=== PATIENT | male | born 1975 | race African-American/Black ===

== ENCOUNTER 2017-06-01 18:16 | Inpatient (IN) | payer OTHER ==
[~2017-06-01] VITALS: Ht 182.9 cm; Wt 70.4 kg
--- NOTE | ~2017-06-01 | CO ---
Unit #: [id number] #: [id number] Patient: IGNACIO SOLIMAN [id number] [address] [place], [place] [address] [id number] MR#: [id number] NAME: IGNACIO SOLIMAN ROOM: 315 Age: 41 Sex: M Admission Date: 06/02/2017 : 1975 Attending Physician: Zofia Gutierrez M.D. Primary Care Physician: No Primary Care Physician Consultation Date: 06/03/2017 CONSULTATION REPORT REASON FOR CONSULT Abnormal CT chest. HISTORY OF PRESENT ILLNESS This is a 41-year-old -[place] gentleman with past medical history significant for end-stage renal disease on dialysis, hypertension, who presented to the emergency room with diffuse chest muscle tenderness and discomfort. Patient had some cough with streak of blood but denied any fever. He had some chills. Patient thought he had pneumonia so he was worried that he needed to be checked early. Patient was treated for pneumonia in April 2016. PAST MEDICAL HISTORY 1. Essential hypertension. 2. End-stage renal disease. 3. Previous pneumonia. ALLERGIES No known drug allergy. HOME MEDICATION 1. Clonidine. 2. Lisinopril. 3. Sensipar. 4. Renvela. 5. Norvasc. FAMILY HISTORY Hypertension. SOCIAL HISTORY Patient lives with his girlfriend. They have five kids. He does not smoke cigarettes but he uses marijuana. He drinks alcohol socially. REVIEW OF SYSTEMS A 12-point review of systems was obtained and was negative except for what was mentioned in the HPI. PHYSICAL EXAMINATION GENERAL: The patient is in no acute distress. HEENT: Normocephalic and atraumatic. PERRLA. EOMI. Unit #: [id number] #: [id number] Patient: IGNACIO SOLIMAN NECK: Supple. No JVD. No lymphadenopathy. CHEST: Clear to auscultation bilaterally. HEART: S1, S2. Systolic murmur. ABDOMEN: Soft, nontender. Bowel sound is positive. No hepatosplenomegaly. EXTREMITIES: No edema or cyanosis. Patient has a left-sided shunt on the left arm. SKIN: No rashes. GIS MANAGER: Awake, alert, oriented x3. No focal motor/sensory deficits. DIAGNOSTIC STUDIES LABORATORY: pO2 of 55 on a blood gas from 2016, creatinine 5.0, sodium 5.6. IMAGING: CT chest is reviewed and noted by me. ASSESSMENT 1. Mild hemoptysis. 2. End-stage renal disease. 3. Hypertension. 4. Noncompliance. PLAN 1. CT chest is reviewed and noted by me and its finding is concerning for chronic thromboembolic disease versus airtrapping from chronic obstructive pulmonary disease or asthma. However, patient denied any history of smoking and his symptoms do not suggest asthma at this point. Will start patient on bronchodilator and will continue with hemodialysis as scheduled. 2. Patient will need a V/Q scan better than CT angiogram to assist for chronic thromboembolic disease. 3. Hemodialysis per nephrology. 4. DVT prophylaxis. I would like to thank Dr. Gutierrez for allowing me to be part of this patient's care. Dictated by... Oliver Toth M.D. EA/janae TD: 06/03/2017 15:29 JOB #: [id number] Unit #: [id number] #: [id number] Patient: IGNACIO SOLIMAN CONSULTATION REPORT Page 1 of 1 X OLIVER PETERSEN MD X CONSULTATION REPORT
--- NOTE | ~2017-06-01 | HP ---
Unit #: [id number] #: [id number] Patient: IGNACIO SOLIMAN [id number] [facility]. [place], [place] [address] [id number] MR#: [id number] NAME: IGNACIO SOLIMAN ROOM: 315 Age: 41 Sex: M Admission Date: 06/02/2017 : 1975 Attending Physician: Nesha Stone M.D. Primary Care Physician: No Primary Care Physician HISTORY AND PHYSICAL CHIEF COMPLAINT Respiratory failure. HISTORY This pleasant 41-year-old male with hypertension and end stage renal failure on dialysis, is admitted for acute hypoxic respiratory failure. Patient states that two days ago he felt somewhat ill with myalgias predominantly in the arms. Noted a minor cough, occasionally productive of some blood tinged sputum and purulent looking material. [place] worse yesterday and presented to this emergency department last evening after dialysis. His chest x-ray is abnormal showing patchy diffuse alveolar disease with stable cardiomegaly, which could represent pneumonia versus congestive heart failure. He denies chest pain with the above. States, however, that his symptoms feel similar to the pneumonia that he was treated for while hospitalized last year. His O2 sats decreased to about 88% now on room air. In the ER vancomycin, tobramycin and Zosyn were ordered. The patient is afebrile with a normal white count, and I was told a normal lactic acid. Will check to see that a lactic acid level was drawn. His BNP is elevated but he is a dialysis patient. His troponin is borderline abnormal at 0.06. On examination he is also noted to have a very prominent mitral valve murmur. Patient was last admitted to this facility 04/2016 for pneumonia, I am unsure whether it was decided to be hospital versus community acquired. His blood cultures were negative, and he underwent bronchoscopy, which I believe was negative, although I do not have the formal report. His sputum on bronchoscopy revealed rare normal respiratory kaite. PAST MEDICAL HISTORY 1. History of fluid overload requiring admission. 2. Essential hypertension. 3. End stage renal failure on hemodialysis Thursday, Thursday and Thursday, followed by Dr. Alvarez. 4. Pneumonia requiring bronchoscopy 04/2016. 5. Echo 02/2009, ejection fraction 55% with moderate LVH, mild MR. 6. Nuclear Lexiscan stress test 2011 probably normal. There was mild fixed inferior wall perfusion abnormality, which possibly got better during the stress. Images thought to be probably related to tissue attenuation. No ischemia. Borderline LV function with ejection fraction of 49%. 7. Left arm fistula for dialysis. ALLERGIES Unit #: [id number] #: [id number] Patient: IGNACIO SOLIMAN Allergies to cashews. HOME MEDICATIONS Renvela 3 tablets p.o. t.i.d. with meals; lisinopril 40 mg daily; Sensipar 1 tablet daily; clonidine 0.2 mg b.i.d. Patient states that he no longer takes Lopressor or Norvasc. FAMILY HISTORY Hypertension. SOCIAL HISTORY The patient lives with his girlfriend, and five children. He does not smoke tobacco. Uses occasional THC but denies other illicit drugs. Drinks occasional alcohol. REVIEW OF SYSTEMS Notable for minor cough, myalgias particularly in the arms, chills, and sweats, hypertension, renal failure, previous history of pneumonia, left arm shunt, history of fluid overload. All other systems were reviewed and otherwise negative. PHYSICAL EXAMINATION GENERAL: Pleasant 41-year-old male currently in no acute distress. VITAL SIGNS: Temperature 98.3, pulse 93, respirations 16, blood pressure 171/102. O2 saturation was initially 92% on room air but did decrease to about 88%. HEENT: Eyes - PERRLA, extraocular muscles are intact. Pharynx is benign. NECK: Supple without adenopathy or thyromegaly. Elevated JVD noted. CHEST: Fairly clear. CARDIAC: Normal S1 and S2 with a loud systolic murmur. Breaths heard at the apex. Apical impulse looks to be somewhat displaced as well. ABDOMEN: Bowel sounds are present, no hepatosplenomegaly, tenderness or masses. EXTREMITIES: Without edema. Pedal pulses are present. Left arm with dialysis fistula with good thrill and good bruit. NEUROLOGIC: Patient is awake, alert and oriented his cranial nerves are intact. He has equal strength throughout. DIAGNOSTIC STUDIES ADMISSION LABS: Hematocrit is 35.9, normal white count and platelet count. SMA 12 - BUN 32, creatinine 8.8, potassium is 3.4, chloride is 96, alk phos is 98. BNP 3,331. I do not see a definite lactic acid and will request a lactic acid. Cardiac markers 0.06 on two sets. Cardiac markers have been borderline indeterminate in the past as well. IMAGING STUDIES: Chest x-ray - patch diffuse alveolar disease with stable cardiomegaly. Increased central prominence, which could be infectious versus congestive heart failure. CARDIOLOGY STUDIES: EKG - normal sinus rhythm, rate 88. There are T wave inversions noted in 1. I believe the EKG is similar to that of a previous EKG, although in T6 there seems to be more of a T wave inversion. ASSESSMENT 1. Cough, acute hypoxic respiratory failure with abnormal chest x-ray. Rule out health care associated pneumonia versus fluid overload with congestive heart failure. 2. End stage renal failure just dialyzed. Unit #: [id number] #: [id number] Patient: IGNACIO SOLIMAN 3. Essential hypertension 4. Loud mitral murmur. PLANS 1. Cefepime, vancomycin, and 1 dose of tobra. 2. Repeat chest x-ray in the morning. 3. EKG, cardiac enzymes and echo in the morning. 4. Blood cultures are pending, will check lactic acid level, along with procalcitonin. 5. SCDs for DVT prophylaxis. 6. Nephrology consultation in the morning. Dictated by Nesha Stone M.D. AML/ts TD: 06/02/2017 06:12 JOB #: [id number] CC: Kaylyn Snyder M.D. HISTORY AND PHYSICAL Page 1 of 1 X Nesha Stone MD HISTORY AND PHYSICAL
--- NOTE | ~2017-06-01 | EKG ---
PATIENT: IGNACIO SOLIMAN UNIT #: [id number] Ventricular Rate: 77 BPM Atrial Rate: 77 BPM P-R Interval: 164 ms QRS Duration: 90 ms Q-T Interval: 406 ms QTC Calculation(Bezet): 459 ms P [place]: 11 degrees Calculated R [place]: 90 degrees Calculated T [place]: 133 degrees Diagnosis Line: Normal sinus rhythm Diagnosis Line: Possible Left atrial enlargement Diagnosis Line: Left ventricular hypertrophy Diagnosis Line: Possible Lateral infarct , age undetermined Diagnosis Line: Abnormal ECG Diagnosis Line: When compared with ECG of 01-JUN-2017 18:28, Diagnosis Line: Incomplete right bundle branch block is no longer Diagnosis Line: Present Diagnosis Line: Septal infarct is now Present Diagnosis Line: Borderline criteria for Lateral infarct are now Diagnosis Line: Present Diagnosis Line: Confirmed by MARK HANSON MD ([id number]) on 06/05/2017 Diagnosis Line: 5:18:21 PM INTERPRETING MD: MARGIE MENDEZ
--- NOTE | ~2017-06-01 | NM69 ---
[facility] A Service of [facility] RADIOLOGY TEXT RESULTS PATIENT: IGNACIO SOLIMAN LOCATION: [facility] 315- : [birth year] UNIT #: [id number] AGE: [address]: Zofia Gutierrez MD SEX: M ORDER DR: [id number] [facility] [address]. [place], [place] [address] [id number] I MR#: [id number] Acc #: [id number] NAME: IGNACIO SOLIMAN : 1975 SEX: M STUDY DATE/TIME: 06/03/2017 14:26 UNIT: A U ROOM: [facility] STUDY DESCRIPTION: NM Pulm Vent and Perf Attending Physician: Zofia Gutierrez M.D. Ordering Physician: Shantelle Toth M.D. Primary Care Physician: Primary Care Physician No MEDICAL IMAGING REPORT This report is preliminary unless electronic signature is present EXAM V/Q scan 06/03 INDICATIONS Cough with hemoptysis and chest pain and hypoxemia that started yesterday. FINDINGS Ventilation images were obtained after the administration of 36.0 mCi of technetium 99m - DTPA aerosol. Corresponding perfusion images were obtained after the IV administration of 5.3 mCi of technetium 99m - MAA. Comparison made with a chest x-ray March 03, 2017. Ventilation and perfusion tracer deposition is somewhat heterogeneous bilaterally. Subsegmental perfusion defects noted right middle lobe. No large segmental defect is seen. Study is low probability for pulmonary embolism. IMPRESSION Low probability for pulmonary embolism. Dictated by... Nadir Shi Jr., M.D. THIS IS AN ELECTRONICALLY VERIFIED REPORT Nadir Shi Jr., M.D. at 06/04/2017 4:32 PM RLK/maurilio TD: 06/03/2017 17:53 JOB #: [id number] MEDICAL IMAGING REPORT Page 1 of 1 COPY
--- NOTE | ~2017-06-01 | CO ---
Unit #: [id number] #: [id number] Patient: IGNACIO HOLM [id number] [facility]. [place], [place] [address] [id number] I MR#: [id number] NAME: IGNACIO HOLM ROOM: 315 Age: 41 Sex: M Admission Date: 06/02/2017 : 1975 Attending Physician: Zofia Gutierrez M.D. Primary Care Physician: Primary Care Physician No Consultation Date: 06/02/2017 CONSULTATION REPORT REASON FOR CONSULTATION Renal failure. Thank you very much for asking me to see this patient in consultation. HISTORY OF PRESENT ILLNESS Mr. Damian Holm is a 41-year-old male with history of end-stage renal disease, on hemodialysis every Thursday, Thursday, and Thursday with his last dialysis yesterday, who presented to the hospital here with cough and hemoptysis. He states just began hurting in his chest and his body and his eyes hurting although. The note from the admitting doctor, states he was short of breath, he states he was not. He denies any fevers or chills. He denies any increased swelling. Reviewing the records from the dialysis unit, his dry weight is set at 70 kg, he got to 70.8 yesterday, although no cramping. PAST MEDICAL HISTORY History of end-stage renal disease, as mentioned above with dialysis every Thursday, Thursday, and Thursday; history of hypertension; history of left arm fistula; history of right upper lobe pneumonia in 04/2016; history of anemia; history of marijuana usage; history of cocaine usage. ALLERGIES Include cashews. FAMILY HISTORY Positive for hypertension. Negative for kidney disease. SOCIAL HISTORY He lives with a girlfriend who has multiple kids. He again does intermittent marijuana and cocaine, but he denies any type of IV usage. He denies any cigarette smoking. No alcohol. MEDICATIONS At home include Renvela 800 mg three with each meal, lisinopril 40 mg a day, Sensipar daily, and clonidine 0.2 mg b.i.d. REVIEW OF SYSTEMS As mentioned in the HPI, otherwise negative. PHYSICAL EXAMINATION GENERAL: He is alert and oriented. VITAL SIGNS: T-max 98.7, pulse 81 to 93, blood pressure 136 to171 over 80 to 114. Unit #: [id number] #: [id number] Patient: IGNACIO HOLM HEENT: He is normocephalic and atraumatic. Pupils are equal, round, and reactive to light. Extraocular muscles are intact. Hearing appears to be normal. Mouth is clear. No erythema. No exudate. NECK: Supple. No JVD. CARDIAC: He appears to have a regular rate and rhythm with a 2/6 systolic ejection murmur. LUNGS: Occasional rhonchi bilaterally. ABDOMEN: Bowel sounds positive, nontender, soft. No masses felt. No hepatomegaly noted. EXTREMITIES: He has no lower extremity swelling. His pulses are intact in lower extremities. He has a large fistula in his left upper arm with good thrill. NEURO: Appears to be intact with motor and sensory grossly. : Deferred. DIAGNOSTIC STUDIES LABORATORY RESULTS: Had a glucose of 115, BUN of 40, creatinine is 10.5, potassium 4.1, bicarb is 28, calcium is 9.0, albumin is 3.6, alkaline phosphatase is 98. Liver function tests are normal. CPK is 262 with a troponin 0.17. BNP is 3731. Lactic acid was 1.02. His INR is 1.2. White count 4700, hemoglobin 11.7 with platelets 167,000. IMAGING STUDIES: His chest x-ray by report apparently showed some bilateral infiltrates, questionable pneumonia versus fluid, but I do not have the actual report. ASSESSMENT AND PLAN 1. End-stage renal disease, again the patient with dialysis yesterday. His electrolytes are stable. I do not see a lot of fluid on board, but his BNP certainly significantly elevated and with his questionable shortness of breath, etc. I am going to go ahead and try to dialyze him today and tomorrow and try to challenge his weight slowly and see if that helps his respiratory status as well and his hypoxemia. We will follow electrolytes. 2. Again, apparently hypoxemia with questionable pneumonia, although no elevation of his white count. I agree with antibiotics as well as check an echo due to his heart murmur and again dialyzed today. 3. Hypertension. Continue current antihypertensive medicines. We will follow trends. 4. History of marijuana and cocaine usage and he states recently, but again denies any IV drug use. Dictated by... Marisol Aguilar/xiomy TD: 06/02/2017 23:30 JOB #: [id number] Unit #: [id number] #: [id number] Patient: IGNACIO HOLM CONSULTATION REPORT Page 1 of 1 X Daniel Gonzalez MD CONSULTATION REPORT
--- NOTE | ~2017-06-01 | CR63 ---
[facility] A Service of [facility] & [facility] RADIOLOGY TEXT RESULTS PATIENT: IGNACIO SOLIMAN LOCATION: [facility] 315- : [birth year] UNIT #: [id number] AGE: [address]: Zofia Gutierrez MD SEX: M ORDER DR: [id number] [facility] [address]. [place], [place] [address] [id number] I MR#: [id number] Acc #: [id number] NAME: IGNACIO SOLIMAN : 1975 SEX: M STUDY DATE/TIME: 06/03/2017 13:56 UNIT: [address] ROOM: [facility] STUDY DESCRIPTION: CR Chest 2 View Attending Physician: Zofia Gutierrez M.D. Ordering Physician: Zofia Gutierrez M.D. Primary Care Physician: No Primary Care Physician MEDICAL IMAGING REPORT This report is preliminary unless electronic signature is present EXAM Chest, 2 views, 06/03/2017, 1356 hours. CLINICAL HISTORY 41-year-old man complaining of a 2-week history of shortness of air and cough productive of bloody sputum. History of renal failure. COMPARISON CT chest 06/03/2017 and chest x-ray 06/02/2017. FINDINGS Upright PA and lateral views of the chest demonstrate stable cardiomegaly and a mildly tortuous aorta. Lungs are hyperinflated with ground-glass perihilar opacities unchanged. There is no effusion. Nodule seen on CT earlier today is not detectable in the right lung on plain film. IMPRESSION Cardiomegaly with pulmonary venous distension. Perihilar ground-glass opacities are unchanged. Lungs are hyperinflated. The nodule demonstrated on CT earlier today in the right lung is not detectable on plain film. Dictated by... Lizbeth Henao M.D. THIS IS AN ELECTRONICALLY VERIFIED REPORT Lizbeth Henao M.D. at 06/04/2017 9:28 AM HINA/ryan TD: 06/03/2017 15:26 JOB #: [id number] [facility] A Service of [facility] & [facility] RADIOLOGY TEXT RESULTS PATIENT: IGNACIO SOLIMAN LOCATION: [facility] 315-01 : [birth year] UNIT #: [id number] AGE: [address]: Zofia Gutierrez MD SEX: M ORDER DR: MEDICAL IMAGING REPORT Page 1 of 1 COPY
--- NOTE | ~2017-06-01 | DS ---
Unit #: [id number] #: [id number] Patient: IGNACIO SOLIMAN [id number] [place], [place] [address] [id number] I MR#: [id number] NAME: IGNACIO SOLIMAN ROOM: 315 Age: 41 Sex: M Admission Date: 06/02/2017 : 1975 Discharge Date: 06/05/2017 Attending Physician: Zofia Gutierrez M.D. Primary Care Physician: No Primary Care Physician DISCHARGE SUMMARY REASON FOR ADMISSION Respiratory failure. HISTORY OF PRESENT ILLNESS/HOSPITAL COURSE The patient is a 41-year-old male with an underlying history of hypertension, end-stage renal failure on dialysis, was admitted secondary to acute hypoxic respiratory failure. Please see H and P for complete details. Essentially patient was fluid overloaded secondary to missing several dialysis sessions as initial BNP was elevated at 4342. 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 He underwent emergent hemodialysis on several occasions through hospital course and he was placed on telemetry floor. Secondary to chest x-ray findings consistent with pneumonia versus fluid overload, patient ultimately underwent CT chest noncontrast on 06/03/2017 and raised the possibility of possible thromboembolism and therefore this prompted a consultation to Dr. Toth of pulmonary services who saw and evaluated patient. Patient then underwent a V/Q scan which was low probability. From Dr. Toth's standpoint no further antibiotics were recommended and/or needed and probability of thromboembolism was felt to be very low. Also noted was an irregular solitary pulmonary nodule in the central right upper lung measuring approximately [address] noncontrast in three to six months was recommended. Subsequently his antibiotics were discontinued. Patient did undergo a 2D echocardiogram secondary to elevated BNP as well as persistent dyspnea. It did reveal severe concentric left ventricular hypertrophy. There was trivial pericardial effusion noted. There was moderate tricuspid regurgitation. Moderately dilated right ventricle was also noted. This subsequently prompted a consultation to Dr. Kim who felt as though findings were more consistent with the patient's longstanding history of noncompliance with routine medications. Appropriate adjustments were made in discharge medications. Please see below for discharge medications and it was noted patient does have a longstanding history of polysubstance abuse; once again he was counseled extensively on the risk of continuing. FINAL DISCHARGE DIAGNOSES Unit #: [id number] #: [id number] Patient: IGNACIO SOLIMAN 1. Acute hypoxic respiratory failure. 2. Volume overload. 3. End-stage renal disease with noncompliance with hemodialysis. 4. Hypertension, noncompliant with medications. 5. Polysubstance abuse. 6. Left ventricular hypertrophy. 7. Mild to moderate valvular heart disease. DISCHARGE MEDICATIONS 1. Clonidine 0.3 mg p.o. q.8 h. 2. Hydralazine 50 mg p.o. q.8 h. 3. Zestril 40 mg p.o. daily. 4. Sensipar 30 mg p.o. daily. 5. Aspirin 81 mg p.o. daily. 6. Renvela 3200 mg p.o. t.i.d. with meals. DISCHARGE CONDITION Stable. DISCHARGE DISPOSITION Home. FOLLOWUP Outpatient hemodialysis was previously ordered and/or scheduled. PROGNOSIS Long-term prognosis of this patient is guarded secondary to longstanding history of noncompliance. Dictated by... Marisol Barboza/janae TD: 06/07/2017 16:03 JOB #: [id number] DISCHARGE SUMMARY Page 1 of 1 X Zofia Gutierrez MD X DISCHARGE SUMMARY
--- NOTE | ~2017-06-01 | CO ---
Unit #: [id number] #: [id number] Patient: IGNACIO SOLIMAN [id number] [facility] [address] [facility]. [place], [place] [address] [id number] I MR#: [id number] NAME: IGNACIO SOLIMAN ROOM: 315 Age: 41 Sex: M Admission Date: 06/02/2017 : 1975 Attending Physician: Zofia Gutierrez M.D. Primary Care Physician: No Primary Care Physician Consultation Date: 06/04/2017 CONSULTATION REPORT REASON FOR ADMISSION Abnormal two-dimensional echocardiogram. HISTORY OF PRESENT ILLNESS This is a 41-year-old male previously known to Dr. Kahn through prior hospitalization in 2010 at [facility]. At that time the patient was treated for endstage renal disease, congestive heart failure and indeterminate troponin. He had probable pneumonia with hemoptysis. A two-dimensional echocardiogram was obtained 02/27/2009 and revealed an ejection fraction of 55% with moderate left ventricular hypertrophy. Left atrium was moderately dilated and there was mild mitral regurgitation. The patient had a Lexiscan Cardiolite stress test in 04/2011 which revealed no ischemia, but a fixed defect in the inferior wall, likely from soft tissue attenuation artifact. Ejection fraction was 49%. He is known to have longstanding hypertension and endstage renal disease on hemodialysis. He has a history of cocaine and marijuana use. He has not followed with a peer health promoter as an outpatient. He denies any recent testing. He presented to the emergency department with complaints of not feeling well. He states that he has been short of breath and has had a cough which has been mildly productive. He has (1) of a small amount of blood, but that has resolved. There are no reports of fever or chills. He denies dizziness or syncope. There are no reports of chest pain, palpitations, PND or orthopnea. He denies lower extremity edema. He has had some recent diarrhea, which he attributes to antibiotic use. There are no reports of melena. The patient states that he has been compliant with his medications and his dialysis. In the emergency department his temperature was 98.3, pulse 93, blood pressure 171/102 and O2 saturations 92% on room air. Initial chest imaging was concerning for pneumonia. He was given vancomycin, tobramycin and Zosyn. He was admitted and nephrology was consulted and he needed dialysis. Two-dimensional echocardiogram was obtained and revealed an ejection fraction of 50%-55% with severe LVH and mild to moderate tricuspid and pulmonic regurgitation. RVSP was elevated at 49 mmHg. The patient underwent a VQ scan which was low probability for PE. Cardiology was consulted for abnormal two-dimensional echocardiogram. PAST MEDICAL HISTORY 1. Previous admission to [facility] in 2010 for congestive heart failure, endstage renal and indeterminate troponin. Probable pneumonia with hemoptysis. 2. Two-dimensional echocardiogram 02/27/2009 revealed an ejection Unit #: [id number] #: [id number] Patient: IGNACIO SOLIMAN fraction of 55%. Left atrium mildly dilated. Moderate LVH. Mild mitral regurgitation. 3. Lexiscan Cardiolite stress test 04/17/2011 revealed a mild fixed inferior wall defect, likely from soft tissue attenuation artifact. No ischemia. Ejection fraction 49%. 4. Hypertension. 5. Endstage renal disease on hemodialysis. 6. Cocaine abuse. 7. Marijuana abuse. 8. Nonsmoker. PAST SURGICAL HISTORY 1. Left arm fistula. 2. Previous Shiley. SOCIAL HISTORY The patient is a nonsmoker, but states he does use marijuana and has a history of cocaine in the past. There are no reports of IV drug use. FAMILY HISTORY Noncontributory for heart disease. ALLERGIES No known drug allergies. Adverse reaction to metoprolol. HOME MEDICATIONS 1. Tylenol 650 mg p.o. q.6 h. p.r.n. pain. 2. Norvasc 10 mg daily. 3. Metoprolol 100 mg p.o. b.i.d. 4. Omnicef 300 mg p.o. b.i.d. 5. Clonidine 0.2 mg p.o. t.i.d. 6. Lisinopril 40 mg p.o. daily. 7. Sensipar 60 mg p.o. daily. 8. Renvela 3200 mg p.o. t.i.d. with meals. The patient's medication reconciliation needs to be reviewed. He states that he cannot take metoprolol due to tightness in the throat. He has only been taking his clonidine b.i.d. Need to verify medications and dosing. REVIEW OF SYSTEMS Ten point review of systems negative except for details noted above in history of present illness. PHYSICAL EXAMINATION GENERAL: This is a 41-year-old male in no acute distress. VITALS: Temperature 98.4, pulse 82, blood pressure 163/93 when I saw the patient. SKIN: Warm and dry. NECK: Supple. No jugular venous distension. No hepatojugular reflux. Normal carotid upstrokes. No carotid bruits auscultated. LUNGS: Bilateral breath sounds have good air entry to all lung seay. Respirations even and unlabored. No rales, rhonchi or wheezes. HEART: S1 and S2. Regular rate and rhythm. No murmurs, rubs or gallops. ABDOMEN: Soft, nontender and nondistended. Positive bowel sounds auscultated all four quadrants. No ascites noted. EXTREMITIES: Bilateral extremities have no pretibial pitting edema. Unit #: [id number] #: [id number] Patient: SOLIMAN,IGNACIO Dorsalis pedis and posterior tibial pulses are 2+. Capillary refill 3 seconds. DIAGNOSTIC STUDIES IMAGING: Chest x-ray reveals cardiomegaly with pulmonary venous distension. Nodule demonstrated on CT earlier today in the right lung is not detectable on plain film. CT of the chest without contrast reveals moderate cardiomegaly with enlarged central pulmonary arteries. Dense mitral valve annulus calcification, faint aortic valvular calcification and atheromatous coronary artery calcification. No pericardial effusion. Diffuse mosaic pattern of lung attenuation, possibly from obstructive airways disease. This can also be change associated with chronic pulmonary thromboembolic disease with pulmonary artery hypertension. Irregular solitary pulmonary nodule in the central right upper lobe measuring 9 mm, new since prior exam. Followup chest CT in 6 months recommended. VQ scan reveals low probability for PE. LABORATORY: White blood cell count 5.7, hemoglobin 12.3, hematocrit 38.9, platelets 217. Sodium 137, potassium 4.7, chloride 93, CO2 27, BUN 51, creatinine 12.8, BUN 71, AST 18, ALT 13, alkaline phosphatase 98, troponin 0.06 and 0.17. BNP 4,342. Procalcitonin normal. INR 1.2. CARDIOVASCULAR: Electrocardiogram reveals sinus rhythm with a ventricular rate of 88 beats per minute. Nonspecific ST-T wave changes. Poor R wave progression. T wave inversion in the lateral leads. QTC 469 msec. ASSESSMENT 1. Questionable pneumonia. 2. VQ scan is low probability for PE. 3. Endstage renal disease on hemodialysis. 4. Uncontrolled hypertension. 5. Severe LVH with an ejection fraction of 50%-55%. Mild to moderate tricuspid and pulmonic regurgitation. Moderate pulmonary hypertension on two-dimensional echocardiogram 06/03/2017. 6. History of cocaine abuse. 7. History of marijuana use. PLAN 1. The patient presented to the hospital with complaints of body aches and a cough. He was admitted and pulmonology was consulted. 2. Cardiology was consulted due to abnormal two-dimensional echocardiogram. The patient's echocardiogram shows severe LVH which is secondary to uncontrolled hypertension. 3. His clonidine and hydralazine have been increased by nephrology. 4. TSH and fasting lipid profile will be obtained. 5. There are no reports of chest pain or evidence of congestive heart failure on exam. 6. The patient has been advised to be compliant with medications and low-sodium diet and has been instructed to refrain from drug use. Dictated by... Mattie Georges APRN for Elizabeth Kim M.D. Unit #: [id number] #: [id number] Patient: IGNACIO SOLIMAN PRISCILA/gz TD: 06/05/2017 08:58 JOB #: [id number] CONSULTATION REPORT Page 1 of 1 X X CONSULTATION REPORT
--- NOTE | ~2017-06-01 | EKG ---
PATIENT: IGNACIO SOLIMAN UNIT #: [id number] Ventricular Rate: 88 BPM Atrial Rate: 88 BPM P-R Interval: 160 ms QRS Duration: 98 ms Q-T Interval: 388 ms QTC Calculation(Bezet): 469 ms P Shickley: 77 degrees Calculated R Shickley: 113 degrees Calculated T Shickley: 160 degrees Diagnosis Line: Normal sinus rhythm Diagnosis Line: Possible Left atrial enlargement Diagnosis Line: Left ventricular hypertrophy Diagnosis Line: RSR' or QR pattern in V1 suggests right Diagnosis Line: ventricular conduction delay Diagnosis Line: T wave abnormality, consider lateral ischemia Diagnosis Line: Prolonged QT Diagnosis Line: Abnormal ECG Diagnosis Line: When compared with ECG of 14-APR-2016 10:53, Diagnosis Line: QRS axis Shifted right Diagnosis Line: Nonspecific T wave abnormality now evident in Diagnosis Line: Inferior leads Diagnosis Line: T wave inversion more evident in Lateral leads Diagnosis Line: Confirmed by SHIRIN CUEVAS MD ([id number]) on Diagnosis Line: 06/01/2017 10:50:17 PM INTERPRETING MD: MARGIE
--- NOTE | ~2017-06-01 | CR63 ---
[facility] A Service of [facility] RADIOLOGY TEXT RESULTS PATIENT: IGNACIO SOLIMAN LOCATION: A 315- : [birth year] UNIT #: [id number] AGE: [address]: Zofia Gutierrez MD SEX: M ORDER DR: [id number] [facility] [address] [facility] [address]. [place], [place] [address] [id number] I MR#: [id number] Acc #: [id number] NAME: IGNACIO SOLIMAN : 1975 SEX: M STUDY DATE/TIME: 06/02/2017 8:09 [facility] STUDY DESCRIPTION: CR Chest 2 View Attending Physician: Zofia Gutierrez M.D. Ordering Physician: Nesha Stone M.D. Primary Care Physician: No Primary Care Physician MEDICAL IMAGING REPORT This report is preliminary unless electronic signature is present EXAM PA and lateral chest, 06/02. INDICATIONS Shortness of air, pneumonia, and bloody cough for 1 day. COMPARISON 06/01. FINDINGS PA and lateral views of the chest were obtained. Heart size is mildly prominent. There is vascular congestion with minimal perihilar and interstitial prominence. This was slightly worse on yesterday's study. IMPRESSION Findings today in comparison with yesterday's study with mild cardiomegaly and vascular prominence and perhaps some minimal perihilar infiltrates or edema. Dictated by... Negrito Mercado M.D. THIS IS AN ELECTRONICALLY VERIFIED REPORT Negrito Mercado M.D. at 06/02/2017 3:17 PM MARLEY/indy TD: 06/02/2017 13:46 JOB #: [id number] MEDICAL IMAGING REPORT Page 1 of 1 COPY
--- NOTE | ~2017-06-01 | CT57 ---
[facility] A Service of [facility] RADIOLOGY TEXT RESULTS PATIENT: IGNACIO SOLIMAN LOCATION: [facility] 315- : [birth year] UNIT #: [id number] AGE: [address]: Zofia Gutierrez MD SEX: M ORDER DR: [id number] [place] [id number] [facility]. [place], [place] [address] [id number] I MR#: [id number] Acc #: [id number] NAME: IGNACIO SOLIMAN : 1975 SEX: M STUDY DATE/TIME: 06/03/2017 1:48 UNIT: C3A PCU ROOM: [facility] STUDY DESCRIPTION: CT Chest Wo Cont Attending Physician: Zofia Gutierrez M.D. Ordering Physician: Zofia Gutierrez M.D. Primary Care Physician: Primary Care Physician No MEDICAL IMAGING REPORT This report is preliminary unless electronic signature is present EXAM CT chest, noncontrast, 06/03/2017 HISTORY 41-year-old male with end-stage renal disease, dialysis. Several day history of shortness of air and cough. Possible pneumonia. TECHNIQUE CT examination of the chest was performed without IV contrast. This CT examination was performed with one or more of the following radiation dose reduction techniques: automatic exposure control, adjustment of mA and/or kV according to patient size, and iterative reconstruction. FINDINGS The heart is moderately enlarged, there is dense mitral valvular calcification, faint aortic valvular calcification and atheromatous coronary artery calcification. No pericardial effusion. Central pulmonary arteries are mildly enlarged. Lung images show diffuse mosaic attenuation pattern, a finding that has been present on previous studies in 2016 and 2011. This is nonspecific, but the primary differential includes obstructive airways disease as well as changes associated with chronic PE with pulmonary artery hypertension. There is a 9 mm slightly irregular pulmonary nodule in the central right upper lobe (image 23) that was not present on prior studies. No additional lung lesion is seen. Followup chest CT in 6 months is recommended to exclude malignancy. No mass or adenopathy is seen within the mediastinum. Limited upper abdominal images show marked bilateral renal atrophy. IMPRESSION [facility] A Service of [facility] RADIOLOGY TEXT RESULTS PATIENT: IGNACIO SOLIMAN LOCATION: C3A 315-01 : [birth year] UNIT #: [id number] AGE: [address]: Zofia Gutierrez MD SEX: M ORDER DR: 1. Moderate cardiomegaly with enlarged central pulmonary arteries. Dense mitral valve annulus calcification, faint aortic valvular calcification and atheromatous coronary artery calcification. No pericardial effusion. 2. Diffuse mosaic pattern of lung attenuation, also present on 2 older studies. This can be seen with obstructive airways disease, but this can also be seen with changes associated with chronic pulmonary thromboembolic disease with pulmonary artery hypertension. 3. Irregular solitary pulmonary nodule in the central right upper lobe measuring 9 mm, new since prior exams. No other lung lesion is seen. Followup chest CT in 6 months is recommended. Dictated by... Jason Ayala M.D. THIS IS AN ELECTRONICALLY VERIFIED REPORT Jason Ayala M.D. at 06/03/2017 9:46 PM NATHAN/héctor TD: 06/03/2017 10:30 JOB #: [id number] MEDICAL IMAGING REPORT Page 1 of 1 COPY
--- NOTE | ~2017-06-01 | CR72 ---
[facility] A Service of [facility] RADIOLOGY TEXT RESULTS PATIENT: IGNACIO SOLIMAN LOCATION: A 315- : [birth year] UNIT #: [id number] AGE: [address]: Zofia Gutierrez MD SEX: M ORDER DR: [id number] [facility] [address] [facility]. [place], [place] [address] [id number] I MR#: [id number] Acc #: [id number] NAME: IGNACIO SOLIMAN : 1975 SEX: M STUDY DATE/TIME: 06/01/2017 21:27 [facility]: [facility] STUDY DESCRIPTION: CR Chest Single View Portable Attending Physician: Zofia Gutierrez M.D. Ordering Physician: Luciana Mccormick M.D. Primary Care Physician: No Primary Care Physician MEDICAL IMAGING REPORT This report is preliminary unless electronic signature is present EXAM Chest x-ray single-view portable HISTORY Short of air. Patient thinks he has pneumonia. He has a prior history of pneumonia. Symptoms started today. History of some of essential hypertension. COMMENT Single frontal portable view of the chest timed 212606/01/2017 is reviewed. There is a previous from 04/14/2016. Patient has moderate cardiac silhouette enlargement and there are bilateral infiltrates and there is abnormal increase in central markings. This could be due to vascular congestion or thickening of the peribronchovascular soft tissues. Please correlate for clinical evidence of aspiration or pneumonia versus concern for pulmonary edema in the setting of congestive failure. Findings are more concerning for aspiration or pneumonia since the heart size is not changed and there is no pleural effusion. On review of a chest x-ray from 2010, cardiac silhouette size is increased from that time. It is certainly possible that there is a combination of both infection and mild congestive failure present in this patient. IMPRESSION Abnormal chest x-ray. There is patchy alveolar disease bilaterally fairly diffusely. Again, there is cardiac silhouette enlargement which is not changed from 04/14/2016, but there is some increase in the central markings which could be due to some increase in central vascularity and/or some thickening of the peribronchovascular soft tissues due to infection. The findings are nonspecific and differential considerations include aspiration or pneumonia as well as congestive failure with patchy pulmonary edema. Of note, there is no evidence for pleural effusion. [facility] A Service of [facility] RADIOLOGY TEXT RESULTS PATIENT: IGNACIO SOLIMAN LOCATION: [facility] 315-01 : [birth year] UNIT #: [id number] AGE: [address]: Zofia Gutierrez MD SEX: M ORDER DR: Clinical correlation and followup is recommended. Dictated by... Bella Merchant M.D. THIS IS AN ELECTRONICALLY VERIFIED REPORT Bella Merchant M.D. at 06/02/2017 11:22 AM BETO/keegan TD: 06/02/2017 10:20 JOB #: [id number] MEDICAL IMAGING REPORT Page 1 of 1 COPY
[~2017-06-01 18:16] MED LIST: ACETAMINOPHEN PO; AMLODIPINE BESYL5 MG PO; CALCIUM ACETAT667 M1 PO; CIPRO PO; CLONIDINE HCL0.1 MG PO; CLONIDINE PO; FOLIC ACID PO; HYDRALAZINE HCL50 MG PO; KEFLEX PO; LEVAQUIN PO; LISINOPRIL PO; LOPRESSOR PO; LOPRESSOR100 MG PO; NEPHROCAPS CAPSU1 MG PO; NORVASC10 MG PO; OMNICEF300 MG PO; PHOSLO667 M1 PO; PHOSLO667 MG PO; PREDNISONE PO; PRINIVIL40 MG PO; RENVELA800 MG PO; SENSIPAR60 MG PO; VICODIN 5/500 T1 TAB PO; VICODIN PO; ZANTAC PO
[2017-06-01 18:57] LABS: BASOPHIL# 0.1 X10e3 (0-0.3); BASOPHIL% 1.1 % (0-2.5); EOSINOPHIL# 0.1 X10e3 (0-0.7); HEMATOCRIT 35.9 % (38.0-50.0); HEMOGLOBIN 11.6 gm/dL (13.0-16.0); LYMPHOCYTE# 0.4 X10e3 (1.0-3.5); LYMPHOCYTE% 7.6 % (17.0-45.0); MEAN CELL VOLUME 85.5 FL (83-96); MEAN CORPUSCULAR HEMOGLOBIN 27.7 PG (28-34); MEAN CORPUSCULAR HGB CONC 32.3 g/dL (30-36); MEAN PLATELET VOLUME 7.9 FL (6.5-11.5); MONOCYTE# 0.5 X10e3 (0-1.0); MONOCYTE% 9.6 % (3.0-12.0); NEUTROPHIL# 4.3 X10e3 (1.5-7.1); NEUTROPHIL% 79.7 % (40-75); PLATELET COUNT 184 X10e3 (140-420); RED CELL DISTRIBUTION WIDTH 19.5 % (11.0-15.5); WHITE BLOOD COUNT 5.4 X10e3 (4.0-10.5)
[2017-06-01 19:00] LABS: DIFF IND NO
[2017-06-01 19:33] LABS: ALBUMIN SERUM 3.6 g/dL (3.5-5.0); BILIRUBIN, DIRECT 0.2 mg/dL (0.0-0.2); BILIRUBIN,INDIRECT 0.7 mg/dL (0.0-0.9); BILIRUBIN,TOTAL 0.9 mg/dL (0.2-2.0); BUN/CREATININE RATIO 3.63; CALCIUM SERUM 8.8 mg/dL (8.4-10.2); CREATININE SERUM 8.8 mg/dL (0.6-1.4); GLOM FILT RATE Estimated 7.8 mL/min (>60); POTASSIUM 3.4 mmol/L (3.5-5.1); PROTEIN TOTAL SERUM 7.3 g/dL (6.0-8.3)
[2017-06-01 20:02] LABS: POC - CKMB 2.9 ng/mL (0.0-7.9); POC - TROPONIN 0.06 ng/mL (<=0.05)
[2017-06-01 22:55] LABS: POC - CKMB 2.5 ng/mL (0.0-7.9); POC - TROPONIN 0.06 ng/mL (<=0.05)
[2017-06-02 05:19] LABS: BASOPHIL# 0.1 X10e3 (0-0.3); BASOPHIL% 1.1 % (0-2.5); EOSINOPHIL# 0.1 X10e3 (0-0.7); HEMATOCRIT 35.6 % (38.0-50.0); HEMOGLOBIN 11.7 gm/dL (13.0-16.0); LYMPHOCYTE# 0.5 X10e3 (1.0-3.5); LYMPHOCYTE% 9.9 % (17.0-45.0); MEAN CELL VOLUME 85.6 FL (83-96); MEAN CORPUSCULAR HEMOGLOBIN 28.1 PG (28-34); MEAN CORPUSCULAR HGB CONC 32.8 g/dL (30-36); MEAN PLATELET VOLUME 7.8 FL (6.5-11.5); MONOCYTE# 0.4 X10e3 (0-1.0); MONOCYTE% 8.2 % (3.0-12.0); NEUTROPHIL# 3.6 X10e3 (1.5-7.1); NEUTROPHIL% 77.8 % (40-75); PLATELET COUNT 167 X10e3 (140-420); RED BLOOD COUNT 4.16 X10e (3.90-5.60); RED CELL DISTRIBUTION WIDTH 19.5 % (11.0-15.5); WHITE BLOOD COUNT 4.7 X10e3 (4.0-10.5)
[2017-06-02 05:21] LABS: DIFF IND NO
[2017-06-02 06:08] LABS: INR 1.2; PARTIAL THROMBOPLASTIN TIME 32.6 SECONDS (23.5-31.3); PROTHROMBIN TIME (PATIENT) 12.9 SECONDS (10.0-11.7)
[2017-06-02 06:19] LABS: BUN/CREATININE RATIO 3.8; CREATININE SERUM 10.5 mg/dL (0.6-1.4); GLOM FILT RATE Estimated 6.3 mL/min (>60); POTASSIUM 4.1 mmol/L (3.5-5.1)
[2017-06-02 06:21] LABS: %MB 1.3 % (0.0-4.0); MB 3.3 ng/ml
[2017-06-02 08:26] LABS: PROCALCITONIN 1.45 NG/ML
[2017-06-03 05:58] LABS: HEMATOCRIT 38.9 % (38.0-50.0); HEMOGLOBIN 12.3 gm/dL (13.0-16.0); MEAN CELL VOLUME 85.3 FL (83-96); MEAN CORPUSCULAR HGB CONC 31.6 g/dL (30-36); MEAN PLATELET VOLUME 8.7 FL (6.5-11.5); RED BLOOD COUNT 4.56 X10e (3.90-5.60); RED CELL DISTRIBUTION WIDTH 19.3 % (11.0-15.5); WHITE BLOOD COUNT 5.7 X10e3 (4.0-10.5)
[2017-06-03 06:37] LABS: BUN/CREATININE RATIO 3.98; CALCIUM SERUM 9.5 mg/dL (8.4-10.2); CREATININE SERUM 12.8 mg/dL (0.6-1.4); POTASSIUM 4.7 mmol/L (3.5-5.1)
[2017-06-05 05:07] LABS: HEMATOCRIT 42.8 % (38.0-50.0); HEMOGLOBIN 13.5 gm/dL (13.0-16.0); MEAN CELL VOLUME 86.2 FL (83-96); MEAN CORPUSCULAR HEMOGLOBIN 27.3 PG (28-34); MEAN CORPUSCULAR HGB CONC 31.6 g/dL (30-36); MEAN PLATELET VOLUME 8.5 FL (6.5-11.5); RED BLOOD COUNT 4.96 X10e (3.90-5.60); RED CELL DISTRIBUTION WIDTH 18.9 % (11.0-15.5); WHITE BLOOD COUNT 4.6 X10e3 (4.0-10.5)
[2017-06-05 05:55] LABS: CHOLESTEROL 143 mg/dL (0-200); HDL CHOLESTEROL 54 mg/dL (29-75); LDL CHOLESTEROL 75 mg/dL (-130); LDL/HDL RATIO 1 RATIO (0-4); TRIGLYCERIDES 70 mg/dL (10-160)
[2017-06-05 06:01] LABS: BUN/CREATININE RATIO 3.83; CALCIUM SERUM 9.9 mg/dL (8.4-10.2); GLOM FILT RATE Estimated 5.4 mL/min (>60); POTASSIUM 4.7 mmol/L (3.5-5.1)
[2017-06-05] MEDS ORDERED: CLONIDINE PO (14:44)
[2017-06-05] MEDS ORDERED: ASPIRIN81 MG PO (14:45)
[2017-06-05] MEDS ORDERED: HYDRALAZINE HCL25 MG PO (14:45)
[2017-06-05] MEDS ORDERED: HYDRALAZINE HCL50 MG PO (14:51)
== END 2017-06-05 16:21 | disposition home or self-care (01) | DRG 189 ==
LOC: CED 18:16 → CEDOF 06-02 01:20 → C3A PCU 06-02 01:20 → CED 06-02 01:39 → CEDOF 06-02 01:39 → C3A PCU 06-02 04:16 → CEDOF 06-02 04:16 → C3A PCU 06-02 07:47
PROVIDERS: Emergency Medicine; Family Medicine; Internal Medicine Cardiovascular Disease
PROC: B24BYZZ Ultrasonography of Heart with Aorta using Other Contrast (ICD-10-PCS; 2017-06-02)
PROC: 5A1D60Z (ICD-10-PCS; principal; 2017-06-03)
DX: J96.01 Acute respiratory failure with hypoxia (principal); I12.0 Hypertensive chronic kidney disease with stage 5 chronic kidney disease or end stage renal disease; N18.6 End stage renal disease; R04.2 Hemoptysis; Z99.2 Dependence on renal dialysis; I08.8 Other rheumatic multiple valve diseases; F14.10 Cocaine abuse, uncomplicated; F12.10 Cannabis abuse, uncomplicated; Z91.19 Patient's noncompliance with other medical treatment and regimen
CPT/HCPCS: 36415; 71010; 71020; 71250; 78582; 80048; 80061; 80076; 80202; 82308; 82550; 82553; 82947; 83605; 83880; 84443; 84484; 85025; 85027; 85610; 85730; 87040; 93005; 93306; 94760; 99285; A9540; A9567; J0360; J0692; J2543; J3260; J3370